=== PATIENT | female | born 1955 | race Caucasian/White ===

== ENCOUNTER → 2017-02-07 | Outpatient (CLI) | payer BC ==
[~2017-02-07] MED LIST: ATOXIMETIN-B1 CAP PO; CELEXA10 MG PO; DOXYCYCLINE 10100 MG PO; EYE; FOCALIN5 MG PO; IMITREX 25MG TA25 MG PO; LYRICA 75MG CAP75 MG PO; NYSTATIN CREAM15 GM TP; SYNTHROID0.025 MG PO; SYNTHROID0.05 MG/TA PO; VALERIAN; XANAX 1MG1 MG PO; [UNRECOGNIZED DRUG - OTHER]
== END ==
LOC: COL.CARD 10:00
DX: R00.2 Palpitations (principal)

== ENCOUNTER → 2017-05-16 | Outpatient (CLI) | payer BC | LOC: MC.RAD 10:40 | DX: Z12.31 Encounter for screening mammogram for malignant neoplasm of breast (principal) ==